=== PATIENT | male | born 1940 | race Caucasian/White ===

== ENCOUNTER → 2018-10-29 | Outpatient (CLI) | payer MEDICARE, BC ==
--- NOTE | 2018-10-29 14:59 | MR ---
EXAMINATION TYPE: MR cervical spine wo/w con DATE OF EXAM: 10/29/2018 COMPARISON: 05/11/2015 HISTORY: Leg weakness / Worsening gait TECHNIQUE: Multiplanar, multisequence images of the cervical spine were acquired utilizing 9 mL intravenous Gada vist gadolinium contrast. Diffusion weighted imaging was performed. FINDINGS: Again there is no abnormal enhancement in this region. There is spinal cord volume loss in keeping with encephalomalacia rather than acute edema. No abnormal enhancement is seen throughout the cervical spine. FINDINGS: Again there is anterior cervical fusion of the C3-C6 vertebral bodies creating susceptibili ty artifact and partially obscuring visualization. No discrete prevertebral soft tissue swelling is s een. Bone marrow signal is within normal limits. Multilevel disc desiccation is seen. There is very m inimal grade 1 anterolisthesis of C7 on T1 with disc uncovering. There is redemonstration of encephalomalacia at the C3-C4 intervertebral level extending caudal poste rior to the C4 vertebral body. C2-C3: Mild uncovertebral hypertrophy is seen bilaterally in combination with facet arthropathy creat es minimal bilateral neural foraminal narrowing. No spinal canal stenosis. C3-C4: Postsurgical change with mild left neural foraminal narrowing as a result of uncovertebral hyp ertrophy and facet arthropathy. No spinal canal stenosis or right neural foraminal narrowing. Encepha lomalacia begins at this level and extends caudally posterior to the mid body of C4 as seen on the pr ior extending over a distance of approximately 1.1 cm. C4-C5: There is a posterior projecting osteophyte impressing upon the ventral subarachnoid space crat ing mild spinal canal stenosis. Minimal left neural foraminal narrowing is seen as uncovertebral hype rtrophy and facet arthropathy are present. Right neuroforamen is patent. C5-C6: Postsurgical change without neural foraminal narrowing. There is slight narrowing of the ventr al subarachnoid space secondary to a broad-based osteophyte. C6-C7: No significant disc disease, spinal canal stenosis nor neural foraminal narrowing. C7-T1: There is minimal disc uncovering without spinal canal stenosis nor neural foraminal narrowing. Ligamentum flavum buckling is seen at this level. IMPRESSION: 1. Redemonstration of myelomalacia from the C3-C4 intervertebral disc space caudally to the level of C4 without enhancement. 2. Posterior osteophyte at C4-C5 creating mild spinal canal stenosis. 3. Mild residual uncovertebral hypertrophy and facet arthropathy creating multilevel minimal to mild neural foraminal narrowing as described above. 4. Minimal anterolisthesis of C7 on T1, new from the prior.
== END | disposition home or self-care (01) ==
LOC: RADMRIMAIN 11:57
PROVIDERS: ATTEND Psychiatry & Neurology Neurology
DX: M48.02 Spinal stenosis, cervical region (principal); M99.71 Connective tissue and disc stenosis of intervertebral foramina of cervical region; M43.13 Spondylolisthesis, cervicothoracic region; M46.92 Unspecified inflammatory spondylopathy, cervical region; G95.89 Other specified diseases of spinal cord
CPT/HCPCS: 82565; 84520; 72156; 36415; A9585